=== PATIENT | female | born 2000 | race Caucasian/White ===

== ENCOUNTER 2021-03-16 15:12 | Outpatient (CLI) | payer BC, SELFPAY ==
[2021-03-16 15:38] LABS: Basophils Absolute Auto 0.1 K/mm3 (0.0-0.1); Basophils Percent Auto 0.5 % (0.2-1.2); Eosinophils Absolute Auto 0.2 K/mm3 (0-0.3); Eosinophils Percent Auto 1.8 % (0-4.4); Hematocrit 43.8 % (37.0-47.0); Hemoglobin 14.2 g/dL (12.0-15.0); Immature Granulocyte Absolute 0.03 K/mm3 (0.00-0.031); Immature Granulocyte Percent A 0.3 % (0-0.5); Lymphocytes Absolute Auto 4.74 K/mm3 (0.9-3.2); Lymphocytes Percent Auto 40.4 % (18.3-44.2); Mean Corpuscular HGB Conc 32.4 g/dl (32-36); Mean Corpuscular Hemoglobin 29.6 pg (26-34); Mean Corpuscular Volume 91.3 fl (80-100); Mean Platelet Volume 9.7 fl (7.4-10.4); Monocytes Absolute Auto 0.8 K/mm3 (0.1-0.6); Monocytes Percent Auto 6.6 % (2.6-8.5); Neutrophils Absolute Auto 5.9 K/mm3 (1.3-6.7); Neutrophils Percent Auto 50.4 % (45.5-73.1); Platelet Count Result 367 k/mm3 (150-375); Red Cell Distribution Width 13.1 % (11.5-14.5); White Blood Count 11.7 K/mm3 (4.5-10.0)
[2021-03-16 15:56] LABS: Hemoglobin A1C 5.3 % (<5.7)
== END 2021-03-16 15:13 | disposition home or self-care (01) ==
LOC: ANHLAB 15:16
PROVIDERS: PCP Family Medicine; Visit Provider Nurse Practitioner Family
DX: D72.829 Elevated white blood cell count, unspecified (principal); R73.09 Other abnormal glucose
CPT/HCPCS: 36415; 83036; 85025

== ENCOUNTER 2021-04-01 09:43 | Outpatient (CLI) | payer BC, SELFPAY ==
[2021-04-01 10:03] LABS: Hematocrit 42.8 % (37.0-47.0); Hemoglobin 13.9 g/dL (12.0-15.0); Mean Corpuscular HGB Conc 32.5 g/dl (32-36); Mean Corpuscular Hemoglobin 29.7 pg (26-34); Mean Corpuscular Volume 91.5 fl (80-100); Mean Platelet Volume 9.7 fl (7.4-10.4); Platelet Count Result 350 k/mm3 (150-375); Red Blood Count 4.68 M/mm3 (4.2-5.4); Red Cell Distribution Width 13.4 % (11.5-14.5); White Blood Count 7.3 K/mm3 (4.5-10.0)
[2021-04-01 10:17] LABS: Alanine Aminotransferase 18 U/L (4-35); Albumin Level 4.5 g/dL (3.5-5.1); Alkaline Phosphatase 52 U/L (38-126); Anion Gap 10 mmol/L (8-16); Aspartate Amino Transferase 29 U/L (14-36); Bilirubin,Total 0.6 mg/dL (0.2-1.3); Blood Urea Nitrogen 7 mg/dL (7-17); Calcium 9.9 mg/dL (8.4-10.2); Carbon Dioxide 24 mmol/L (22-30); Chloride 108 mmol/L (98-107); Estimated Glomerular Filt Rate > 60; Glucose 95 mg/dL (65-105); Potassium 3.9 mmol/L (3.4-5.0); Sodium 142 mmol/L (137-145)
== END 2021-04-01 09:44 | disposition home or self-care (01) ==
LOC: ANHLAB 09:45
PROVIDERS: PCP Family Medicine; Visit Provider Nurse Practitioner Family
DX: R10.9 Unspecified abdominal pain (principal); R63.4 Abnormal weight loss
CPT/HCPCS: 36415; 80053; 84443; 85027

== ENCOUNTER → 2021-04-10 01:29 | Outpatient (CLI) | payer BC, SELFPAY ==
[2021-04-10 19:38] LABS: SARS-CoV-2 RNA PCR Negative
== END ==
PROVIDERS: PCP Family Medicine; Visit Provider Internal Medicine Gastroenterology
DX: Z01.812 Encounter for preprocedural laboratory examination (principal); Z20.822 Contact with and (suspected) exposure to COVID-19
CPT/HCPCS: C9803; U0003; U0005

== ENCOUNTER 2021-04-14 00:46 | Day surgery (SDC) | payer BC, SELFPAY ==
[2021-04-14 06:27] VITALS: BP 99/70; PULSE 82; RESP 16; TEMP 36.4; O2SAT 100
[2021-04-14] MEDS: LACTATED RINGERS 1,000 ML 150 ML IV CONT (06:36)
--- NOTE | 2021-04-14 07:18 | WPDANESEPPF ---
Anes - Initial Pre Proc Eval Procedure: Operation Date: 04/14/21 07:30 Proposed Procedures p Esophagogastroduodenoscopy - Yony Gonzalez MD Date/Time: 04/14/21 07:18 Surgeon: Yony Gonzalez MD Pre Op Diagnosis: nausea, vomiting Patient Data Age: 20 Gender: F Height: 4 ft 8 in Weight: 41.6 kg Last Vital Signs Temp 97.6 F 04/14/21 06:27 Pulse 82 04/14/21 06:27 Resp 16 04/14/21 06:27 BP 99/70 L 04/14/21 06:27 Pulse Ox 100 04/14/21 06:27 Allergies Allergy/AdvReac Type Severity Reaction Status Date / Time No Known Allergies Allergy Verified 04/14/21 06:26 Home Medications Medication Instructions Recorded Confirmed Type etonogestrel 0.12 mg-ethinyl 1 vag ring VAGINAL ONCE 02/18/21 04/12/21 History estradiol 0.015 mg/24 hr vaginal ring ondansetron HCl 4 mg tablet 4 mg PO Q8H PRN #90 tablet 04/01/21 04/12/21 Rx Patient hx anesthesia problems: none Family hx anesthesia problems: none PMFSH Past Medical History Medical History (Updated 04/01/21 @ 09:40 by Yony Gonzalez MD) BMI between 19-24,adult Cannabis abuse Nausea and vomiting in adult Tobacco abuse Family History Family History Grandparent Diabetes mellitus Social History Social History (Updated 04/01/21 @ 09:18 by Brandi Espitia CMA) Smoking status: Current some day smoker Tobacco type: e-cigarettes/vaping Second hand tobacco smoke exposure: No Alcohol intake: never Substance use: current Substance use type: marijuana Other substance usage details: EVERYDAY Spiritual care concerns: No Anes - Eval Final PreProcedure Day of Procedure 04/14/21 07:18 Patient weight: normal Heart: regular rate and rhythm Lungs: clear to auscultation Airway: Mallampati scale class II Neurological: alert and oriented Last oral intake: >/= 8 hours ASA classification: II Emergent: no Anesthetic plan: proceed Anesthesia type and monitoring: general GIVS and standard monitoring Informed Consent: The patient's anesthetic plan and its attendant risks and benefits were discussed with the patient/family/POA. Questions were solicited and answers provided to the satisfaction of the patient/family/POA.
--- NOTE | 2021-04-14 07:22 | WPDHPUPDATE1 ---
History and Physical Update Update Date/Time: 04/14/21 07:22 History and Physical has been reviewed, including an updated exam of the patient. There are NO changes in the patient's condition. Risks, benefits, and alternatives have been discussed and questions answered. Patient agrees to proceed with procedure.
[2021-04-14 07:42] VITALS: BP 91/54; PULSE 85; RESP 20; O2SAT 98
[2021-04-14 07:52] VITALS: BP 98/63; PULSE 80; RESP 20; O2SAT 100
[2021-04-14 08:02] VITALS: BP 99/73; PULSE 83; RESP 26; O2SAT 100
== END 2021-04-14 08:23 | disposition home or self-care (01) ==
PROVIDERS: PCP Family Medicine; Visit Provider Internal Medicine Gastroenterology
PROC: 0DJ08ZZ Inspection of Upper Intestinal Tract, Via Natural or Artificial Opening Endoscopic (ICD-10-PCS; CPT 43235; principal; 2021-04-14 07:30)
DX: R11.2 Nausea with vomiting, unspecified (principal); R63.4 Abnormal weight loss; F17.290 Nicotine dependence, other tobacco product, uncomplicated; F12.10 Cannabis abuse, uncomplicated
CPT/HCPCS: 43239; 88305; J2250; J2704; J7120

== ENCOUNTER 2023-11-15 12:47 | Outpatient (CLI) | payer BC, SELFPAY ==
--- NOTE | ~2023-11-15 | XR_ITS ---
EXAMINATION: XR abdomen/kub 1V DATE: 11/15/2023 13:10 INDICATION: Calculus of kidney. TECHNIQUE: A supine view of the abdomen on 2 radiographs was obtained. COMPARISON: None. FINDINGS: There are no dilated loops of bowel. There is a 3 mm calcification in right abdomen. IMPRESSION: 1. 3 mm calcification in right abdomen that may be a right kidney stone. Reviewed, dictated and finalized at location A. NEER TECHNICIAN
--- NOTE | ~2023-11-15 | US_ITS ---
EXAMINATION: US renal BI DATE: 11/15/2023 13:06 INDICATION: Calculus of kidney. Hematuria. Right flank pain. TECHNIQUE: Multiple ultrasound grayscale images of the kidneys were obtained. COMPARISON: None. FINDINGS: The right kidney measures 9.0 x 3.7 x 5.0 cm. The left kidney measures 9.0 x 4.2 x 4.9 cm. The kidney s demonstrate normal parenchymal echogenicity. There is no hydronephrosis. The bladder is normal. IMPRESSION: 1. Normal kidneys. No hydronephrosis. Reviewed, dictated and finalized at location A. ICI[employer] SUPPORT COORDINATOR
== END 2023-11-15 12:48 ==
LOC: MICIMG 12:48
PROVIDERS: PCP Nurse Practitioner Adult Health; Visit Provider Nurse Practitioner Adult Health
DX: N20.0 Calculus of kidney (principal)
CPT/HCPCS: 74018; 76775